=== PATIENT | male | born 1985 | race Caucasian/White ===

== ENCOUNTER 2019-12-18 19:42 | Emergency (ER) | payer OTHER, SELFPAY ==
[2019-12-19 15:44] LABS: SARS-CoV-2 MS2 Positive; SARS-CoV-2 N Gene Negative; SARS-CoV-2 S Gene Negative; SARS-CoV-2 orf1ab Negative
== END 2019-12-18 21:48 | disposition home or self-care (01) ==
LOC: ERS 19:42
DX: R05 Cough (principal); R53.83 Other fatigue; F17.210 Nicotine dependence, cigarettes, uncomplicated; Z20.828 Contact with and (suspected) exposure to other viral communicable diseases
CPT/HCPCS: 87635; 99283; U0003

== ENCOUNTER 2020-08-29 20:53 | Emergency (ER) | payer OTHER, SELFPAY ==
[2020-08-29 22:02] LABS: #Basophils 0.1 thou/uL (0.0-0.2); #Eosinphils 0.2 thou/uL (0.0-0.7); #Lymphocytes 2.5 thou/uL (1.20-3.40); #Monocytes 0.7 thou/uL (0.11-0.59); #Neutrophils 3.4 thou/uL (1.40-6.50); %Eosinophils 3.2 % (0.0-10.0); %Lymphocytes 35.9 % (21.0-51.0); %Monocytes 10.1 % (0.0-10.0); %Neutrophils 49.7 % (42.0-75.0); Hemoglobin 15.3 g/dL (14.0-18.0); Mean Corpuscular HGB CONC 33.1 g/dL (32.0-36.0); Mean Corpuscular Hemoglobin 33.1 pg (27.0-31.0); Mean Platelet Volume 7.6 fL (7.4-10.4); Platelet Count 308 thou/uL (130-400); RBC Distribution Width 12.4 % (11.5-14.5); Red Blood Cell (RBC) Count 4.63 mill/uL (4.70-6.10); White Blood Cell (WBC) Count 6.8 thou/uL (4.8-10.8)
[2020-08-29 22:22] LABS: ALT (SGPT) 17 U/L (8-55); AST (SGOT) 18 U/L (5-34); Albumin 4.3 g/dL (3.5-5.0); Alkaline Phosphatase 63 U/L (40-110); Anion Gap 14 mmol/L (10-20); BUN (Urea Nitrogen) 9 mg/dL (8.9-20.6); Bilirubin, Total 0.8 mg/dL (0.2-1.2); Calc. Creatinine Clearance 0 mL/min (70-130); Calcium 9.2 mg/dL (7.8-10.44); Carbon Dioxide 22 mmol/L (22-29); Chloride 109 mmol/L (98-107); Globulin 2.8 g/dL (2.4-3.5); Glucose 86 mg/dL (70-105); Potassium 3.8 mmol/L (3.5-5.1); Protein, Total 7.1 g/dL (6.0-8.3); Sodium 141 mmol/L (136-145)
== END 2020-08-29 22:33 | disposition home or self-care (01) ==
LOC: ERS 20:53
DX: R07.89 Other chest pain (principal); F17.210 Nicotine dependence, cigarettes, uncomplicated
CPT/HCPCS: 36415; 71045; 80053; 84484; 85025; 93005

== ENCOUNTER 2020-11-18 12:46 | Emergency (ER) | payer SELFPAY ==
[~2020-11-18 12:46] MED LIST: Iopamidol 300 61% 50 ML VIAL FS ONE
[2020-11-18 17:01] LABS: Bacteria/HPF None Seen HPF (None Seen); Bilirubin Negative (Negative); Blood, Urine 2+ (Negative); Clarity Clear (Clear); Glucose, Urine (Dipstick) Normal (Negative); Ketone, Urine Negative (Negative); Leukocyte 75 Leu/uL (Negative); Nitrite Negative (Negative); Protein, Urine (Dipstick) Negative (Neg-Trace); RBC/HPF 21-50 HPF (0-3); Specific Gravity, Urine 1.027 (1.002-1.036); Squamous Epithelial None Seen HPF (0-3); Urobilinogen Normal mg/dL (Less than 2); WBC/HPF 0-3 HPF (0-3); pH, Urine 6.5 (5.0-9.0)
== END 2020-11-18 16:49 | disposition home or self-care (01) ==
LOC: ERS 12:46
DX: R31.0 Gross hematuria (principal); F17.210 Nicotine dependence, cigarettes, uncomplicated
CPT/HCPCS: 51610; 74450; 76870; 81003; 81015; 93976; Q9967

== ENCOUNTER 2020-12-03 18:36 | Emergency (ER) | payer SELFPAY ==
[2020-12-03] MEDS ORDERED: Proparacaine 0.5% Opth 15 ML BOT ONE (19:09)
[2020-12-03] MEDS ORDERED: Fluorescein Opthalmic Strip ONE (19:32)
== END 2020-12-03 20:10 | disposition home or self-care (01) ==
LOC: ERS 18:36
DX: T26.91XA Corrosion of right eye and adnexa, part unspecified, initial encounter (principal); F17.210 Nicotine dependence, cigarettes, uncomplicated
CPT/HCPCS: 99283

== ENCOUNTER 2021-01-08 06:40 | Emergency (ER) | payer SELFPAY ==
[2021-01-08 07:34] LABS: #Basophils 0.1 thou/uL (0.0-0.2); #Eosinphils 0.3 thou/uL (0.0-0.7); #Monocytes 0.9 thou/uL (0.11-0.59); #Neutrophils 3.3 thou/uL (1.40-6.50); %Basophils 0.9 % (0.0-1.0); %Eosinophils 3.9 % (0.0-10.0); %Lymphocytes 39.6 % (21.0-51.0); %Monocytes 11.7 % (0.0-10.0); %Neutrophils 43.9 % (42.0-75.0); Hemoglobin 14.5 g/dL (14.0-18.0); Mean Corpuscular HGB CONC 28.5 g/dL (32.0-36.0); Mean Corpuscular Hemoglobin 28.2 pg (27.0-31.0); Mean Corpuscular Volume 99.1 fL (78.0-98.0); Mean Platelet Volume 7.6 fL (7.4-10.4); Platelet Count 339 thou/uL (130-400); RBC Distribution Width 12.4 % (11.5-14.5); Red Blood Cell (RBC) Count 5.12 mill/uL (4.70-6.10); White Blood Cell (WBC) Count 7.5 thou/uL (4.8-10.8)
[2021-01-08] MEDS ORDERED: Ketorolac Tromethamine 30 MG/ML VIAL ONE (08:12)
[2021-01-08 08:21] LABS: ALT (SGPT) 17 U/L (8-55); AST (SGOT) 20 U/L (5-34); Albumin 4.4 g/dL (3.5-5.0); Alkaline Phosphatase 70 U/L (40-110); Anion Gap 14 mmol/L (10-20); BUN (Urea Nitrogen) 13 mg/dL (8.9-20.6); Bilirubin, Total 1.1 mg/dL (0.2-1.2); Calc. Creatinine Clearance 0 mL/min (70-130); Calcium 9.6 mg/dL (7.8-10.44); Carbon Dioxide 21 mmol/L (22-29); Chloride 107 mmol/L (98-107); Globulin 2.8 g/dL (2.4-3.5); Glucose 84 mg/dL (70-105); Potassium 4.4 mmol/L (3.5-5.1); Protein, Total 7.2 g/dL (6.0-8.3); Sodium 138 mmol/L (136-145)
== END 2021-01-08 09:13 | disposition home or self-care (01) ==
LOC: ERS 06:40
DX: R07.9 Chest pain, unspecified (principal); F17.210 Nicotine dependence, cigarettes, uncomplicated
CPT/HCPCS: 36415; 71045; 80053; 84484; 85025; 93005; 96372; J1885

== ENCOUNTER 2021-06-22 16:34 | Emergency (ER) | payer SELFPAY ==
[2021-06-22] MEDS ORDERED: Ketorolac Tromethamine 30 MG/ML VIAL ONE (17:15)
[2021-06-22] MEDS ORDERED: Ondansetron PF 4 MG/2 ML Vial ONE (17:15)
[2021-06-22 17:36] LABS: #Basophils 0.1 thou/uL (0.0-0.2); #Monocytes 0.5 thou/uL (0.11-0.59); #Neutrophils 10.8 thou/uL (1.40-6.50); %Basophils 0.5 % (0.0-1.0); %Eosinophils 0.3 % (0.0-10.0); %Lymphocytes 7.8 % (21.0-51.0); %Monocytes 4.4 % (0.0-10.0); %Neutrophils 87.1 % (42.0-75.0); Hemoglobin 17.2 g/dL (14.0-18.0); Platelet Count 288 thou/uL (130-400); RBC Distribution Width 12.1 % (11.5-14.5); Red Blood Cell (RBC) Count 5.21 mill/uL (4.70-6.10); White Blood Cell (WBC) Count 12.4 thou/uL (4.8-10.8)
[2021-06-22 17:57] LABS: ALT (SGPT) 26 U/L (8-55); AST (SGOT) 22 U/L (5-34); Albumin 4.6 g/dL (3.5-5.0); Alkaline Phosphatase 86 U/L (40-110); Anion Gap 13 mmol/L (10-20); BUN (Urea Nitrogen) 9 mg/dL (8.9-20.6); Bilirubin, Total 0.5 mg/dL (0.2-1.2); Calc. Creatinine Clearance 0 mL/min (70-130); Calcium 10.5 mg/dL (7.8-10.44); Carbon Dioxide 24 mmol/L (22-29); Chloride 106 mmol/L (98-107); Globulin 3.4 g/dL (2.4-3.5); Glucose 122 mg/dL (70-105); Potassium 4.3 mmol/L (3.5-5.1); Sodium 139 mmol/L (136-145)
[2021-06-22] MEDS ORDERED: Morphine 4 MG/ML VIAL ONE (18:08)
[2021-06-22 20:01] LABS: Bacteria/HPF None Seen HPF (None Seen); Bilirubin Negative (Negative); Blood, Urine 3+ (Negative); Clarity Turbid (Clear); Glucose, Urine (Dipstick) Normal (Negative); Ketone, Urine 20 mg/dL (Negative); Leukocyte 25 Leu/uL (Negative); Nitrite Negative (Negative); Protein, Urine (Dipstick) 30 mg/dL (Neg-Trace); Specific Gravity, Urine 1.028 (1.002-1.036); Squamous Epithelial 0-3 HPF (0-3); Urobilinogen Normal mg/dL (Less than 2); pH, Urine 5.5 (5.0-9.0)
[2021-06-22 20:02] LABS: RBC/HPF 21-50 HPF (0-3)
== END 2021-06-22 21:44 | disposition home or self-care (01) ==
LOC: ERS 16:34
DX: N20.0 Calculus of kidney (principal); F17.210 Nicotine dependence, cigarettes, uncomplicated
CPT/HCPCS: 74176; 80053; 81003; 81015; 83605; 85025; 96374; 96375; J1885; J2270; J2405

== ENCOUNTER 2022-01-12 15:42 | Emergency (ER) | payer SELFPAY ==
[2022-01-12 16:04] LABS: #Basophils 0.1 thou/uL (0.0-0.2); #Eosinphils 0.1 thou/uL (0.0-0.7); #Lymphocytes 2.6 thou/uL (1.20-3.40); #Monocytes 0.9 thou/uL (0.11-0.59); #Neutrophils 6.4 thou/uL (1.40-6.50); %Basophils 0.7 % (0.0-1.0); %Eosinophils 1.3 % (0.0-10.0); %Lymphocytes 26.1 % (21.0-51.0); %Monocytes 8.8 % (0.0-10.0); %Neutrophils 63.1 % (42.0-75.0); Hemoglobin 14.9 g/dL (14.0-18.0); Mean Corpuscular HGB CONC 32.9 g/dL (32.0-36.0); Mean Platelet Volume 7.4 fL (7.4-10.4); Platelet Count 327 thou/uL (130-400); RBC Distribution Width 12.6 % (11.5-14.5); Red Blood Cell (RBC) Count 4.52 mill/uL (4.70-6.10); White Blood Cell (WBC) Count 10.1 thou/uL (4.8-10.8)
[2022-01-12 16:27] LABS: ALT (SGPT) 15 U/L (8-55); AST (SGOT) 13 U/L (5-34); Albumin 4.2 g/dL (3.5-5.0); Alkaline Phosphatase 73 U/L (40-110); Anion Gap 12 mmol/L (10-20); BUN (Urea Nitrogen) 6 mg/dL (8.9-20.6); Bilirubin, Total 0.6 mg/dL (0.2-1.2); Calc. Creatinine Clearance 0 mL/min (70-130); Calcium 9.5 mg/dL (7.8-10.44); Carbon Dioxide 28 mmol/L (22-29); Chloride 106 mmol/L (98-107); Estimated GFR 106; Glucose 91 mg/dL (70-105); Potassium 4.4 mmol/L (3.5-5.1); Protein, Total 7.2 g/dL (6.0-8.3); Sodium 142 mmol/L (136-145)
[2022-01-12 17:57] LABS: pH, Urine 6.5 (5.0-9.0)
[2022-01-12 17:58] LABS: Specific Gravity, Urine 1.018 (1.002-1.036)
[2022-01-12 17:59] LABS: Bilirubin Unable to Interpret (Negative); Blood, Urine Unable to Interpret (Negative); Glucose, Urine (Dipstick) Unable to Interpret mg/dL (Negative); Ketone, Urine Unable to Interpret mg/dL (Negative); Leukocyte Unable to Interpret (Negative); Nitrite Unable to Interpret (Negative); Protein, Urine (Dipstick) Unable to Interpret mg/dL (Neg-Trace); Urobilinogen UNABLE TO INTERPRET mg/dL (Less than 2)
[2022-01-12 18:00] LABS: Bacteria/HPF Rare-Few HPF (None Seen); RBC/HPF Greater than 50 HPF (0-3); Squamous Epithelial None Seen HPF (0-3); WBC/HPF None Seen HPF (0-3)
[2022-01-12 18:09] LABS: Clarity Cloudy (Clear)
[2022-01-12] MEDS ORDERED: Ketorolac Tromethamine 30 MG/ML VIAL ONE (18:48)
[2022-01-12] MEDS ORDERED: HYDROcodone/Acetaminophen 5/325 mg Tablet ONE (18:48)
== END 2022-01-12 19:07 | disposition home or self-care (01) ==
LOC: ERS 15:42
DX: N13.2 Hydronephrosis with renal and ureteral calculous obstruction (principal)
CPT/HCPCS: 36415; 74176; 80053; 81003; 81015; 85025; 96372; J1885

== ENCOUNTER 2022-08-25 15:04 | Emergency (ER) | payer SELFPAY ==
[2022-08-25 16:12] LABS: #Basophils 0.1 thou/uL (0.0-0.2); #Eosinphils 0.1 thou/uL (0.0-0.7); #Lymphocytes 2.4 thou/uL (1.20-3.40); #Monocytes 0.8 thou/uL (0.11-0.59); %Basophils 0.8 % (0.0-1.0); %Lymphocytes 25.5 % (21.0-51.0); %Monocytes 8.7 % (0.0-10.0); Hemoglobin 15.9 g/dL (14.0-18.0); Mean Corpuscular HGB CONC 32.7 g/dL (32.0-36.0); Mean Corpuscular Hemoglobin 32.7 pg (27.0-31.0); Mean Corpuscular Volume 99.8 fl (78.0-98.0); Mean Platelet Volume 7.3 fL (7.4-10.4); Platelet Count 330 10x3/uL (130-400); RBC Distribution Width 12.6 % (11.5-14.5); Red Blood Cell (RBC) Count 4.86 mill/uL (4.70-6.10); White Blood Cell (WBC) Count 9.4 10x3/uL (4.8-10.8)
[2022-08-25 16:39] LABS: ALT (SGPT) 15 U/L (8-55); AST (SGOT) 17 U/L (5-34); Albumin 4.2 g/dL (3.5-5.0); Alkaline Phosphatase 76 U/L (40-110); Anion Gap 13 mmol/L (10-20); BUN (Urea Nitrogen) 8 mg/dL (8.9-20.6); Bilirubin, Total 0.5 mg/dL (0.2-1.2); Calc. Creatinine Clearance 0 mL/min (70-130); Calcium 10.2 mg/dL (7.8-10.44); Carbon Dioxide 22 mmol/L (22-29); Chloride 107 mmol/L (98-107); Estimated GFR 117; Globulin 2.7 g/dL (2.4-3.5); Glucose 76 mg/dL (70-105); Potassium 4.3 mmol/L (3.5-5.1); Protein, Total 6.9 g/dL (6.0-8.3); Sodium 138 mmol/L (136-145)
[2022-08-25] MEDS ORDERED: Morphine 4 MG/ML VIAL ONE (18:38)
[2022-08-25] MEDS ORDERED: Ibuprofen 200 MG TAB ONE (18:38)
== END 2022-08-25 19:05 | disposition home or self-care (01) ==
LOC: ERS 15:04
DX: K08.89 Other specified disorders of teeth and supporting structures (principal); I10 Essential (primary) hypertension
CPT/HCPCS: 36415; 80053; 85025; 96372; 99283; J2270